=== PATIENT | female | born 1970 | race Caucasian/White ===

== ENCOUNTER 2016-11-03 10:19 | Emergency (ER) | payer OTHER ==
[~2016-11-03] VITALS: Ht 175.3 cm; Wt 127.0 kg
[~2016-11-03 10:19] MED LIST: XYZAL5 MG PO; ZICAM PO
[2016-11-03] MEDS ORDERED: FLEXERIL10 MG PO (11:17)
[2016-11-03] MEDS ORDERED: NAPROXEN500 MG PO (11:17)
[2016-11-03 11:25] VITALS: BP 133/94
== END 2016-11-03 11:26 | disposition home or self-care (01) ==
LOC: EME 10:19
DX: S16.1XXA Strain of muscle, fascia and tendon at neck level, initial encounter (principal); V86.69XA Passenger of other special all-terrain or other off-road motor vehicle injured in nontraffic accident, initial encounter; Z86.73 Personal history of transient ischemic attack (TIA), and cerebral infarction without residual deficits; Z87.891 Personal history of nicotine dependence
CPT/HCPCS: 72040; 99281; 99283